=== PATIENT | female | born 1965 | race Caucasian/White ===

== ENCOUNTER 2018-11-17 05:22 | Emergency (ER) | payer OTHER ==
[2018-11-17] MEDS ORDERED: PROMETHAZINE HCL 25 MG/ML INJ IVP ONE (05:45)
[2018-11-17] MEDS ORDERED: KETOROLAC 15 MG/1 ML SDV IVP ONE (05:45)
--- NOTE | 2018-11-17 06:14 | EDPHY ---
H & P Stated Complaint: Headache x4 days, nausea Time Seen by Provider: 11/17/18 05:36 HPI/ROS: Chief Complaint: Headache HPI: 53-year-old woman presenting with a headache, 8/10, for the last 4 days. She states that she is not prone to headaches but has been having intermittent headaches similar to this for the last 8 months. She is perimenopausal. Headaches are in the bifrontal area behind her eyes and sometimes radiating to the right occipital area. She is mildly photophobic. Some nausea vomiting. Did have a history of headaches as a child that these went away with adulthood. She denies any fevers or chills. No neck pain or stiffness. No cough. There are no aggravating or alleviating factors. She has not noticed any triggers. No vision changes or or eyes. Occasionally has a little bit of numbness in her right arm, none now. She has not seen a physician for these in the past. ROS: 10 systems were reviewed and were negative except those elements noted in the HPI. PMH: Denies Social History: No smoking, no alcohol, no recreational drug use Family History: non-contributory Physical Exam: Gen: Awake, Alert, No Distress HEENT: Nose: no rhinorrhea Eyes: PERRLA, EOMI Mouth: Moist mucosa Neck: Supple, no JVD, no meningismus Chest: nontender, lungs clear to auscultation Heart: S1, S2 normal, no murmur Abd: Soft, non-tender, no guarding Back: no CVA tenderness, no midline tenderness Ext: no edema, non-tender Skin: no rash Neuro: CN II-XII intact, Sensation grossly intact, Strength 5/5 in bilateral upper and lower extremities - Personal History LMP (Females 10-55): Now Current Tetanus Diphtheria and Acellular Pertussis (TDAP): Yes Tetanus Vaccine Date: < 5 - Medical/Surgical History Hx Asthma: No Hx Chronic Respiratory Disease: No Hx Diabetes: No Hx Cardiac Disease: No Hx Renal Disease: No Hx Cirrhosis: No Hx Alcoholism: No Hx HIV/AIDS: No Hx Splenectomy or Spleen Trauma: No Other PMH: denies - Social History Smoking Status: Never smoked Constitutional: Initial Vital Signs Temperature (C) 36.8 C 11/17/18 05:24 Heart Rate 70 11/17/18 05:24 Respiratory Rate 17 11/17/18 05:24 Blood Pressure 177/107 H 11/17/18 05:24 O2 Sat (%) 97 11/17/18 05:24 O2 Delivery Mode Room Air Allergies/Adverse Reactions: No Known Allergies Allergy (Unverified 11/17/18 05:23) Home Medications: Medication Instructions Recorded NK [No Known Home Meds] 11/17/18 Medical Decision Making ED Course/Re-evaluation: 53-year-old with intermittent headaches for the last 8 months. She has no meningismus. No red flags for acute infectious process. CT scan of the brain is normal. Atraumatic. She is premenopausal and I suspect this may be contributing. She is also having some tightness in her shoulders and there certainly could be a tension type headache component. I do not think this represents acute hemorrhages she has been having intermittent headaches like this for the last several months. It was not thunderclap in onset. Not the worst headache of her life. Pain is improved after Toradol and Phenergan here. She is completely neurologically intact. Plan will be for discharge for outpatient workup and further evaluation. - Data Points Laboratory Results: Laboratory Results 11/17/18 06:00 11/17/18 06:00 Sodium 138 mEq/L mEq/L (135-145) Potassium 3.5 mEq/L mEq/L (3.5-5.2) Chloride 110 mEq/L mEq/L (97-110) Carbon Dioxide 23 mEq/l mEq/l (22-31) Anion Gap 5 mEq/L L mEq/L (6-14) BUN 14 mg/dL mg/dL (7-23) Creatinine 0.8 mg/dL mg/dL (0.6-1.0) Estimated GFR > 60 Glucose 94 mg/dL mg/dL (70-100) Calcium 9.2 mg/dL mg/dL (8.5-10.4) Medications Given: Discontinued Medications Ketorolac Tromethamine (Toradol) 15 mg IVP EDNOW ONE Stop: 11/17/18 05:46 Last Admin: 11/17/18 05:53 Dose: 15 mg Promethazine HCl (Phenergan) 12.5 mg IVP ONCE ONE Stop: 11/17/18 05:46 Last Admin: 11/17/18 05:53 Dose: 12.5 mg Departure - Departure Disposition: Home, Routine, Self-Care Clinical Impression: Headache Condition: Good Instructions: Acute Headache (ED) Additional Instructions: Take ibuprofen, 600 mg every 8 hr. You may alternate with acetaminophen, 1000 mg every 8 hr. Follow up with primary care physician and probably a neurologist when you return home to [place]. Referrals: NONE *PRIMARY CARE P,. [Primary Care Provider] - As per Instructions
[2018-11-17 06:25] VITALS: BP 170/105
== END 2018-11-17 06:42 | disposition home or self-care (01) ==
DX: R51 Headache (principal)
CPT/HCPCS: 96374; J1885; J2550